=== PATIENT | female | born 1980 | race African-American/Black ===

== ENCOUNTER 2017-06-29 14:35 | Day surgery (SDC) | payer MEDICAID ==
[~2017-06-29 14:35] MED LIST: Dexamethasone 20 MG/5 ML VIAL ONE; Glycopyrrolate 0.2 MG/ML 5 ML SYRINGE ONE; Lidocaine 1% PF 5 ML VIAL ONE; Ondansetron HCl/PF 4 MG/2 ML Vial ONE; PROPOFOL 200 MG/20 ML VIAL ONE
[2017-06-29] MEDS ORDERED: Famotidine/PF 20 mg/2ml Vial ONE (15:13)
[2017-06-29] MEDS ORDERED: Fentanyl 100 MCG/2 ML VIAL ONE ×2 (15:13→16:09)
[2017-06-29] MEDS ORDERED: Bupivacaine HCl 0.5%/Epinephrine 1:200,000/PF 30 ml Vial ONE (15:14)
[2017-06-29 15:34] LABS: #Basophils 0.1 thou/uL (0.0-0.2); #Eosinphils 0.4 thou/uL (0.0-0.7); #Lymphocytes 1.9 thou/uL (1.20-3.40); #Monocytes 0.5 thou/uL (0.11-0.59); #Neutrophils 5.4 thou/uL (1.40-6.50); %Basophils 0.8 % (0.0-1.0); %Eosinophils 4.4 % (0.0-10.0); %Lymphocytes 23.3 % (21.0-51.0); %Monocytes 6.1 % (0.0-10.0); %Neutrophils 65.4 % (42.0-75.0); Hemoglobin 13.4 g/dL (12.0-16.0); Mean Corpuscular HGB CONC 33.6 g/dL (32.0-36.0); Mean Corpuscular Volume 89.5 fl (81.0-99.0); Platelet Count 256 thou/uL (130-400); RBC Distribution Width 11.7 % (11.5-14.5); Red Blood Cell (RBC) Count 4.47 mill/uL (4.20-5.40); White Blood Cell (WBC) Count 8.3 thou/uL (4.8-10.8)
[2017-06-29] MEDS ORDERED: Midazolam HCl 2 mg/2 ml Vial ONE (16:09)
[2017-06-29] MEDS ORDERED: SUGAMMADEX SODIUM 200 MG/2 ML VIAL ONE (19:16)
[2017-06-29] MEDS ORDERED: Meperidine HCl/PF 25 MG/ML VIAL ONE (19:41)
[2017-06-29] MEDS ORDERED: HYDROcodone/Acetaminophen 5/325 mg Tablet ONE (21:25)
--- NOTE | 2017-06-30 04:58 | OP ---
DATE OF PROCEDURE: 06/29/2017 PREOPERATIVE DIAGNOSIS: Left tubal ectopic . POSTOPERATIVE DIAGNOSIS: Left cornual ectopic . PROCEDURES: 1. Diagnostic laparoscopy. 2. Left salpingectomy with resection of the left cornual ectopic. SURGEON: Millie Peres DO PROVER: Suman Pride MD COMPLICATIONS: None. ESTIMATED BLOOD LOSS: 100 mL. IV FLUIDS: 2000 mL. URINE OUTPUT: 250 mL. ANESTHESIA: General. INDICATIONS FOR THE PROCEDURE: Ms. Houser is a 36-year-old, G6, P4 and at uncertain gestational age, who presented to [facility] with reported positive test. The patient had undergone an ultrasound with serial beta hCGs, initial slightly above 15,000 with repeat 48 hours later around 13, 000. She was sent for consult to my office today due to her possible ectopic . On ultrasound, there was no intrauterine and there was a large complex 5.5-cm mass on the left adnexa, which clinically appeared to be an ectopic . The patient was counseled on her treatment options including medical management with methotrexate versus surgical management. Due to patient's difficulty with followup, she preferred to have surgical management. The patient did request to preserve her fertility if possible; however, understood that a salpingectomy may be necessary due to the ectopic and desired to proceed. FINDINGS: Normal external genitalia, normal vaginal and cervical epithelium, and normal right ovary. Her right fallopian tube was absent due to history of right salpingectomy. A normal left ovary and a large 5-6 cm ectopic on the left cornua of the uterus and also involving the left fallopian tube. PROCEDURE IN DETAIL: The patient was brought to the operating room and she was placed under general anesthesia and placed in dorsal lithotomy position using Abdirizak stirrups. She was prepped and draped in sterile fashion. An official time-out was performed. The vaginal portion was begun by placing a single- hinged speculum into the vagina, grasped the anterior aspect of the cervix, and a Hulka manipulator was inserted. The remainder of the instruments were removed from the vagina. Gloves were changed and attention was turned to the abdominal portion. An umbilical incision was made using the scalpel and a Veress needle was inserted into the peritoneal cavity and the peritoneal cavity was insufflated. A 5-mm trocar was then placed through this site. The patient was placed in Trendelenburg position. The pelvic cavity was evaluated, noting the findings above. Cattle Alley Worker ports were placed, both in the right and left aspect of the abdomen using 5-mm port with a total of 3 physician assistant surgery ports and 1 camera port. The procedure was begun by first performing a salpingectomy on the left side. This was started distally and then carried proximally. Allowed for separation of the ectopic from the mesosalpinx on the side. A capsule shell was created circumferentially along where the ectopic and uterus met through a small portion of the myometrium performing a wedge resection with the LigaSure device. This was performed in a circumferential fashion until the ectopic was completely removed from both the uterus and the adnexa. There was a superficial defect in the wall of the myometrium. Several areas were treated with cautery. The defect was reapproximated using laparoscopic intracorporeal suturing using a V-Loc suture in a running fashion and hemostasis was achieved. The abdominal pressure was decreased and hemostasis was maintained. The pelvis was irrigated and cleared of all clot and debris. During the process of trying to achieve hemostasis initially, FloSeal was placed ; however, did not appropriately address the generalized oozing from the area. The midline port was extended to 11 mm and the ectopic was placed into an 11-mm bag and brought up through the umbilicus port, requiring removal in multiple pieces using Yokasta clamps due to the size of the ectopic . The pelvis was again evaluated and noted to be hemostatic. The instruments were removed. The abdomen was completely deflated and the trocars were removed. The fascia was closed at the umbilical port and the skin was closed with 4-0 monocryl and Dermabond. The patient was placed back in supine position and was extubated without difficulty. She will be transferred to PACU in hemodynamically stable condition. All counts were correct x2. MTDD
--- NOTE | 2017-06-30 14:27 | ADD-OP ---
ADDENDUM I was first assist on a laparoscopic procedure for a left cornual ectopic . Primary surg torsten was Dr. Millie Peres.
== END 2017-06-29 21:50 | disposition home or self-care (01) ==
LOC: SDC 14:35 → EEVIPCON 14:35 → SDC 21:50
PROVIDERS: ATTEND Obstetrics & Gynecology
PROC: 0UT64ZZ Resection of Left Fallopian Tube, Percutaneous Endoscopic Approach (ICD-10-PCS; principal; 2017-06-29)
PROC: 10T24ZZ Resection of Products of Conception, Ectopic, Percutaneous Endoscopic Approach (ICD-10-PCS; principal; 2017-06-29)
DX: O00.102 Left tubal pregnancy without intrauterine pregnancy (principal); F41.9 Anxiety disorder, unspecified; Z90.79 Acquired absence of other genital organ(s)
CPT/HCPCS: 85025; 86850; 86900; 86901; 88305; 96374; J0131; J0670; J1100; J2001; J2175; J2250; J2405; J2704; J3010; S0028

== ENCOUNTER 2017-08-08 20:11 | Emergency (ER) | payer OTHER ==
[2017-08-08 20:33] LABS: Pregnancy Test - Urine (BHCG) Negative (Negative); Pregu Control Background? CLEAR/WHITE (CLR/WHITE); Pregu Control Bar Appear? YES (CONTROL BAR)
[2017-08-08 20:34] LABS: Specific Gravity 1.025 (1.002-1.036)
[2017-08-08 20:35] LABS: Bilirubin Negative (Negative); Blood, Urine Large (Negative); Clarity Cloudy (Clear); Glucose, Urine (Dipstick) Negative (Negative); Leukocyte Large (Negative); Nitrite Negative (Negative); Protein, Urine (Dipstick) 30 mg/dL (Neg-Trace); Specific Gravity, Urine 1.025 (1.005-1.030); pH, Urine 6.5 (5.0-9.0)
[2017-08-08 20:46] LABS: RBC/HPF GREATER THAN 50-TNTC HPF (0-3); WBC/HPF 21-50 HPF (0-3)
[2017-08-08 20:47] LABS: Bacteria/HPF 3+ HPF (None Seen)
== END 2017-08-08 21:05 | disposition home or self-care (01) ==
LOC: SCSER 20:11
DX: N39.0 Urinary tract infection, site not specified (principal); F17.210 Nicotine dependence, cigarettes, uncomplicated
CPT/HCPCS: 81003; 81015; 81025; 99283

== ENCOUNTER 2018-02-23 16:10 | Emergency (ER) | payer OTHER, SELFPAY ==
[2018-02-23] MEDS ORDERED: Azithromycin 250 MG TAB ONE (17:03)
[2018-02-23] MEDS ORDERED: cefTRIAXone\\ROCEPHIN 250 MG VIAL ONE (17:03)
[2018-02-23] MEDS ORDERED: Lidocaine 1% PF 5 ML VIAL ONE (17:03)
[2018-02-28 02:53] LABS: Chlamydia by PCR Not Detected (NotDetected); GC by PCR Not Detected (NotDetected)
== END 2018-02-23 17:30 | disposition home or self-care (01) ==
LOC: SCSER 16:10
DX: Z20.2 Contact with and (suspected) exposure to infections with a predominantly sexual mode of transmission (principal); F17.210 Nicotine dependence, cigarettes, uncomplicated
CPT/HCPCS: 87480; 87491; 87510; 87591; 87660; 96372; J0696; J2001

== ENCOUNTER 2019-12-18 17:56 | Emergency (ER) | payer BC, OTHER, SELFPAY ==
[2019-12-18] MEDS ORDERED: Acetaminophen 500 MG TAB ONE (18:06)
[2019-12-18] MEDS ORDERED: Ibuprofen 200 MG TAB ONE (18:06)
--- NOTE | 2019-12-18 18:53 | RAD ---
Right ankle 3 views HISTORY: Injury. FINDINGS: Ankle mortise and talar dome are intact. No acute fracture, dislocation, or aggressive osse ous erosions. Very mild degenerative changes of the posterior subtalar facet. IMPRESSION : No acute osseous abnormalities are demonstrated.
--- NOTE | 2019-12-18 18:53 | RAD ---
Right foot 3 views HISTORY: Foot injury. FINDINGS: Lisfranc joint alignment is anatomic. Plantar arch is maintained. No acute fracture, disloc ation, or aggressive osseous erosions. IMPRESSION : No abnormalities are demonstrated.
--- NOTE | 2019-12-18 18:55 | RAD ---
Chest one view HISTORY: Chest injury. COMPARISON: 01/09/2017. FINDINGS: Cardiac silhouette is magnified by projection. Pulmonary vasculature is unremarkable. Mediastinum is midline allowing for mild S shaped curvature of the thoracic spine. Small rounded meta llic density projecting between the heads of the clavicles likely represent extrinsic artifact. No lobar consolidation or evidence of pneumothorax. Old left clavicle fracture is unchanged. IMPRESSION : No acute abnormalities are demonstrated.
== END 2019-12-18 19:58 | disposition home or self-care (01) ==
LOC: ERS 17:56
DX: S16.1XXA Strain of muscle, fascia and tendon at neck level, initial encounter (principal); S90.31XA Contusion of right foot, initial encounter; S50.812A Abrasion of left forearm, initial encounter; S50.811A Abrasion of right forearm, initial encounter; V43.52XA Car driver injured in collision with other type car in traffic accident, initial encounter
CPT/HCPCS: 71045; 93005